=== PATIENT | female | born 1995 | race Caucasian/White ===

== ENCOUNTER 2021-01-26 15:44 | Emergency (ER) | payer OTHER, SELFPAY ==
[2021-01-26 16:11] VITALS: BP 118/74; PULSE 106; RESP 17; TEMP 37.5; O2SAT 100
--- NOTE | 2021-01-26 16:18 | ED.FEMALEGU ---
HPI - Female Genitourinary General Chief complaint: Urogenital-Female Stated complaint: UTI History of Present Illness HPI Narrative: This is a 25-year-old female comes in complaining with burning urination and frequency states that is been going on for approximately 1 week. Patient states she tried taking cranberry pills to see if it would help resolve the symptoms which did not now it is truly burning and she is having frequency as well as urgency. Related Data Home Medications Medication Instructions Recorded Confirmed medroxyprogesterone mg IM 01/26/21 Allergies Allergy/AdvReac Type Severity Reaction Status Date / Time Penicillins AdvReac Other Verified 01/26/21 16:24 Review of Systems Review of Systems: Narrative: CONSTITUTIONAL: Denies fever, chills, or sweats. EYES: Denies visual changes, redness, or discharge. ENT: Denies rhinorrhea, congestion, sore throat, or otalgia. CARDIOVASCULAR:Denies chest pain, palpitations, or edema. RESPIRATORY: Denies cough or dyspnea. GASTROINTESTINAL: Denies abdominal pain, nausea, vomiting, or diarrhea. GENITOURINARY: Reports dysuria or hematuria. SKIN:[Denies rash or itching. MUSCULOSKELETAL:Denies back pain, joint pain, or myalgia. NEUROLOGIC: Denies headache, numbness, or weakness. PSYCHIATRIC:Denies anxiety or depression PMFSH Comments At time as signature, I have reviewed and agree with nursing past medical, social, surgical and family history. Please see nursing chart for further information. There is no relevant family history pertinent to the presenting complaint. Exam Narrative: Exam Narrative: GENERAL:Well-appearing, well-nourished, and in no acute distress. HEAD:Normocephalic, atraumatic. EYES: PERRLA and EOMI. ENT: Nares clear, no rhinorrhea or epistaxis. Mucous membranes moist. NECK: Supple. CHEST: Clear to auscultation. No respiratory distress. HEART: Regular rate and rhythm. No murmur heard. Normal peripheral pulses. ABDOMEN: Soft, nontender, nondistended, normal active bowel sounds. Frequency, urgency, dysuria EXTREMITIES: Normal range of motion. No edema. SKIN: Warm, dry, no rash. NEURO: No focal deficits. Alert and oriented x3. Discussed with patient about her allergies and what affects her side effects she has to them patient informed me both of her parents are allergic to penicillin I explained and educated patient that parents allergies does not indicate her allergies. Course WINDOWS ADMIN/PA Physician Supervision +2+ blood 1 leuks will send for culture Vital Signs Vital signs: Vital Signs Temperature 99.5 F 01/26/21 16:11 Pulse Rate 106 H 01/26/21 16:11 Respiratory Rate 17 01/26/21 16:11 Blood Pressure 118/74 01/26/21 16:11 Pulse Oximetry 100 01/26/21 16:11 Temperature 99.5 F 01/26/21 16:11 Pulse Rate 106 H 01/26/21 16:11 Respiratory Rate 17 01/26/21 16:11 Blood Pressure 118/74 01/26/21 16:11 Pulse Oximetry 100 01/26/21 16:11 MDM - Female Genitourinary Differential Diagnosis Differential diagnosis: Likely urinary tract infection and cystitis Discharge Plan Discharge Clinical Impression: Urinary tract infection Qualifiers: Urinary tract infection type: acute cystitis Hematuria presence: with hematuria Qualified Code(s): N30.01 - Acute cystitis with hematuria Patient Disposition: Home, Self-Care Condition: Stable Instructions: Antibiotic Form, Urinary Tract Infection in Women (DC) Additional Instructions: We will send a urine culture off to the lab; if the culture identifies an organism that the prescribed antibiotic will not treat, you will receive a phone call from an urgent care staff member and an appropriate antibiotic will be prescribed. Increase fluids especially water Avoid caffeine and carbonated beverages Antibiotic as directed Medicine as directed--cautioned it will cause your urine to be bright orange Tylenol/ibuprofen prn for pain or fever Follow-up with your primary care provider for u
== END 2021-01-26 16:24 | disposition home or self-care (01) ==
PROVIDERS: Emergency Provider Nurse Practitioner Family
DX: N30.01 Acute cystitis with hematuria (principal)
CPT/HCPCS: 81003; 87077; 87086; 87088; 87186; 99213; G0463

== ENCOUNTER 2021-04-20 16:37 | Emergency (ER) | payer OTHER, SELFPAY ==
[2021-04-20 16:52] VITALS: BP 114/72; PULSE 83; RESP 16; TEMP 37.4; O2SAT 100
--- NOTE | 2021-04-20 17:53 | ED.FEMALEGU ---
HPI - Female Genitourinary General Chief complaint: Urogenital-Female Stated complaint: UTI Time Seen by Provider: 04/20/21 17:25 Source: patient, RN notes reviewed and old records reviewed Mode of arrival: ambulatory Limitations: no limitations History of Present Illness HPI Narrative: 26-year-old female presents to [facility] with complaints of burning with urination since Monday. Patient denies any nausea or vomiting or any known fevers, chills or sweats.Patient reports no suprapubic tenderness or any flank or low back discomfort. She states that she has not taken any OTC Azo for her symptoms. She denies any vaginal discharge or itching or any concerns for possible STD exposure. Patient does states history of previous urinary tract infections. MD elicited complaint: dysuria Related Data Home Medications Medication Instructions Recorded Confirmed medroxyprogesterone mg IM 01/26/21 Allergies Allergy/AdvReac Type Severity Reaction Status Date / Time Penicillins AdvReac Other Verified 01/26/21 16:24 Review of Systems Review of Systems: CONSTITUTIONAL: Denies fever, chills, or sweats. EYES: Denies visual changes, redness, or discharge. ENT: Denies rhinorrhea, congestion, sore throat, or otalgia. CARDIOVASCULAR: Denies chest pain, palpitations, or edema. RESPIRATORY: Denies cough or dyspnea. GASTROINTESTINAL: Denies abdominal pain, nausea, vomiting, or diarrhea. GENITOURINARY: Positive dysuria or hematuria. SKIN: Denies rash or itching. MUSCULOSKELETAL: Denies back pain, joint pain, or myalgia. NEUROLOGIC: Denies headache, numbness, or weakness. PSYCHIATRIC: Denies anxiety or depression. All systems reviewed & are unremarkable except as noted in HPI and below PMFSH Past Medical History Medical History (Updated 04/24/21 @ 08:26 by Nancie Gallardo NP) UTI (urinary tract infection) Surgical History Surgical History (Updated 04/24/21 @ 08:26 by Nancie Gallardo NP) No history of previous surgery Family History Family History (Updated 04/24/21 @ 08:28 by Nancie Gallardo NP) Mother Cerebrovascular accident Uterine cancer Father Hypertension Heart disease Melanoma Alzheimers disease Social History Social History (Updated 04/24/21 @ 08:29 by Nancie Gallardo NP) Smoking status: Never smoker Alcohol intake: current Alcohol use details: rare social Substance use: never Living arrangements: with family Gender identity (if verbalized by the patient): Female Comments At time of signature, agree with nursing past medical, surgical, social and family history. There is no relevant family history pertinent to the presenting complaint Exam Narrative: GENERAL: Well-appearing, well-nourished, and in no acute distress. HEAD: Normocephalic, atraumatic. EYES: PERRLA and EOMI. ENT: Nares clear, no rhinorrhea or epistaxis. Mucous membranes moist.TM's normal with good light reflex, throat pink with no exudates or lesions, no tonsil enlargement NECK: Supple.no lymphadenopathy CHEST: Clear to auscultation. No respiratory distress.SAO2 100% on room air HEART: Regular rate and rhythm. No murmur heard. Normal peripheral pulses. ABDOMEN: Soft, nontender, nondistended, normal active bowel sounds.No CVA tenderness on exam EXTREMITIES: Normal range of motion. No edema. SKIN: Warm, dry, no rash. NEURO: No focal deficits. Alert and oriented x3. Course Vital Signs Vital signs: Vital Signs Temperature 37.4 C 04/20/21 16:52 Pulse Rate 83 04/20/21 16:52 Respiratory Rate 16 04/20/21 16:52 Blood Pressure 114/72 04/20/21 16:52 Pulse Oximetry 100 04/20/21 16:52 Temperature 37.4 C 04/20/21 16:52 Pulse Rate 83 04/20/21 16:52 Respiratory Rate 16 04/20/21 16:52 Blood Pressure 114/72 04/20/21 16:52 Pulse Oximetry 100 04/20/21 16:52 MDM - Female Genitourinary Differential Diagnosis Differential diagnosis: Likely urinary tract infection, cervicitis, vaginitis, cy
== END 2021-04-20 18:12 | disposition home or self-care (01) ==
PROVIDERS: Emergency Provider Registered Nurse
DX: N39.0 Urinary tract infection, site not specified (principal)
CPT/HCPCS: 81003; 87077; 87086; 87088; 87186; 99213; G0463

== ENCOUNTER 2023-10-24 13:42 | Emergency (ER) | payer SELFPAY ==
[2023-10-24 14:07] VITALS: BP 137/74; PULSE 78; RESP 16; TEMP 36.4; O2SAT 100
--- NOTE | 2023-10-24 16:47 | ED.FEMALEGU ---
HPI - Female Genitourinary General Chief complaint: Vaginal Bleeding Stated complaint: vaginal bleeding Time Seen by Provider: 10/24/23 16:50 Source: patient Mode of arrival: ambulatory Limitations: no limitations History of Present Illness HPI Narrative: Tashi is a 28-year-old female patient presenting to the ER today for complaints of vaginal bleeding-passing 3 dime size clots. Is having normal menstrual cramps. Menses is not heavy. But patient reports that is abnormal for her to pass clots during her menstruation. She denies any abdominal pain, unusual cramping, fever, chills, body aches, or any bleeding disorder. She is not currently on any type of control. States she does not have a OBGYN provider as she has off and on insurance. Related Data Home Medications Medication Instructions Recorded Confirmed medroxyprogesterone 150 mg/mL mg IM 01/26/21 intramuscular syringe Allergies Allergy/AdvReac Type Severity Reaction Status Date / Time Penicillins AdvReac Other Verified 01/26/21 16:24 Review of Systems Review of Systems: Pertinent positives per HPI. Patient denies any fever, chills, rash, headache, visual changes, dizziness, cough, runny nose, sore throat, shortness of breath, chest pain, palpitations, nausea, vomiting, diarrhea, constipation, abdominal pain, or any urinary issues. [facility] Past Medical History Medical History (Updated 10/24/23 @ 16:58 by Dell Membreno APRN) UTI (urinary tract infection) Surgical History Surgical History No history of previous surgery Family History Family History Mother Cerebrovascular accident Uterine cancer Father Hypertension Heart disease Melanoma Alzheimers disease Social History Social History Smoking status: Never smoker Alcohol intake: current Alcohol use details: rare social Substance use: never Living arrangements: with family Gender identity (if verbalized by the patient): Female Comments At the time of my signature, I reviewed and agree with the nursing past medical, surgical, social, and family history. There is no relevant family history pertinent to the patient complaint. Exam Narrative: General: Well-developed, well nourished, in no apparent distress. Head: Normocephalic, atraumatic. Cardio: Regular rate and rhythm, s1 and s2 normal, no murmur appreciated. Resp: Clear to auscultation bilaterally, no rhonchi, rales, wheezing or rubs. Abdomen: Soft, pliable, bowel sounds present in all quadrants, non-tender to palpation, no organomegly, no CVAT tenderness. : Deferred Course Course Emergency Course: Portions of this record may have been created with voice recognition software. Vital Signs Vital signs: Vital Signs Temperature 36.4 C L 10/24/23 14:07 Pulse Rate 78 10/24/23 14:07 Respiratory Rate 16 10/24/23 14:07 Blood Pressure 137/74 10/24/23 14:07 Pulse Oximetry 100 10/24/23 14:07 Oxygen Delivery Room Air 10/24/23 14:07 Temperature 36.4 C L 10/24/23 14:07 Pulse Rate 78 10/24/23 14:07 Respiratory Rate 16 10/24/23 14:07 Blood Pressure 137/74 10/24/23 14:07 Pulse Oximetry 100 10/24/23 14:07 Oxygen Delivery Room Air 10/24/23 14:07 Vital signs reviewed MDM - Female Genitourinary MDM Narrative Medical decision making narrative: At the time of visit patient is resting comfortably on the exam table. Patient appears to be nontoxic. Labs: Bedside test was negative Plan: I suspect patient has normal menstruation with blood clots. Bedside test was negative. OBGYN referral was given. supportive measures were discussed with the patient and they voiced understanding discharge instructions and agrees to treatment plan. Return precautions reviewed
[2023-10-24 16:52] VITALS: BP 126/74; PULSE 76; RESP 16; TEMP 36.7; O2SAT 100
== END 2023-10-24 17:20 | disposition home or self-care (01) ==
LOC: ANHED 17:18
PROVIDERS: Emergency Provider Nurse Practitioner Family
DX: N92.0 Excessive and frequent menstruation with regular cycle (principal); Z87.440 Personal history of urinary (tract) infections
CPT/HCPCS: 99281

== ENCOUNTER 2025-06-18 16:21 | Emergency (ER) | payer BC, SELFPAY ==
--- NOTE | ~2025-06-18 | US_ITS ---
EXAMINATION: US OB <=14 wk fetus w TV DATE: 06/18/2025 17:42 INDICATION: Possible demise during first trimester TECHNIQUE: Real-time pelvic ultrasound utilizing both a transvaginal and transabdominal probe was performed. The interpreting radiologist was not present for the study. COMPARISON: None. FINDINGS: The uterus measures 6.4 x 5.5 x 3.7 cm. There is an intrauterine gestational sac. A yolk sac and pole are identified. The crown rump length measures 9 mm, which correlates with an estimated gestational age of 6 weeks and 6 days. There is no evident heart motion on cine grayscale imaging, color Doppler or M-mode Doppler which is consistent with demise. The right ovary measures 2.6 x 2.0 x 1.7 cm. The left ovary measures 2.3 x 1.4 x 1.3 cm. Basilar flow identified in both ovaries on color Doppler. There is no free fluid in the pelvis. IMPRESSION: 1. Single intrauterine gestational sac with a 9 mm pole which would correspond to a gestational age by ultrasound of 6 weeks and 6 days +/-4 days but without discernible heart motion which be consistent with demise. Reviewed, dictated and finalized at location A. IMPRESSION: 1. Single intrauterine gestational sac with a 9 mm pole which would corre spond to a gestational age by ultrasound of 6 weeks and 6 days +/-4 days but wi thout discernible heart motion which be consistent with demise.
[2025-06-18 16:22] VITALS: BP 132/84; PULSE 97; RESP 16; TEMP 36.8; O2SAT 100
--- NOTE | 2025-06-18 16:24 | ED.PREGNANCY ---
HPI - General Chief complaint: Recheck/Abnormal Lab/Rx <Dell Membreno APRN - Last Filed: 06/18/25 16:32> Stated complaint: unable to detect heartbeat on US at [facility] <Dell Membreno APRN - Last Filed: 06/18/25 16:32> Time Seen by Provider: 06/18/25 16:24 <Dell Membreno APRN - Last Filed: 06/18/25 16:32> Focused HPI: Tashi is a 30-year-old female patient presenting to the ER today for no heart rate-patient is 8 weeks . Had US at [facility] and they could not find a heart beat. Last menstrual period was April 19, 2020. Patient is . Only reports very scant amount of vaginal bleeding but did not think anything of it. No vaginal bleeding, abdomen pain, or pelvic pain currently. Reports some nausea. GENERAL: Well-appearing, morbidly obese, and in no acute distress. HEAD: Normocephalic, atraumatic. CHEST: Clear to auscultation. No respiratory distress. HEART: Regular rate and rhythm. NEURO: Alert and oriented x3. Patient screened in triage and initial orders placed. Additional care and disposition to be based upon diagnostic testing and treatment. <Dell Membreno APRN - Last Filed: 06/18/25 16:32> Source: patient and family <Dell Membreno APRN - Last Filed: 06/18/25 16:32> Mode of arrival: ambulatory <Dell Membreno APRN - Last Filed: 06/18/25 16:32> Limitations: no limitations <Dell Membreno APRN - Last Filed: 06/18/25 16:32> Related Data Home medications: Home Medications ?Medication ?Instructions ?Recorded ?Confirmed ?Last Taken ?Type medroxyprogesterone 150 mg/mL mg IM 01/26/21 Unknown History intramuscular syringe <Dell Membreno APRN - Last Filed: 06/18/25 16:32> Allergies/Adverse reactions: Allergies Allergy/AdvReac Type Severity Reaction Status Date / Time Penicillins AdvReac Other Verified 06/18/25 16:25 <Dell Membreno APRN - Last Filed: 06/18/25 16:32> Review of Systems Review of Systems: All systems reviewed & are unremarkable except as noted in HPI and below <Jeri Burger APRN - Last Filed: 06/18/25 19:46> [facility] Past Medical History Medical History: Medical History UTI (urinary tract infection) <Dell Membreno APRN - Last Filed: 06/18/25 16:32> Surgical History Surgical History: Surgical History No history of previous surgery <Dell Membreno APRN - Last Filed: 06/18/25 16:32> Family History Family History: Family History Mother Cerebrovascular accident Uterine cancer Father Hypertension Heart disease Melanoma Alzheimers disease <Dell Membreno APRN - Last Filed: 06/18/25 16:32> Social History Social History: Social History Smoking status: Never smoker Alcohol intake: current Alcohol use details: rare social Substance use: never Living arrangements: with family Gender identity (if verbalized by the patient): Female <Dell Membreno APRN - Last Filed: 06/18/25 16:32> Exam Narrative: GENERAL: Well appearing, obese, non-toxic, in no acute distress. HEAD: Normocephalic, atraumatic. NECK: Supple. No adenopathy, no masses. RESPIRATORY: Airway patent, respirations nonlabored. Clear to auscultation bilaterally, no rales, rhonchi, wheezing. CARDIOVASCULAR: Regular rate and rhythm without murmurs, rubs, or gallops. Peripheral pulses 2+ and equal bilaterally. ABDOMINAL: Soft, nontender, nondistended, no hepatosplenomegaly. Normoactive BS. MUSCULOSKELETAL: Moves all extremities. Strength/ROM intact without gross deformities. SKIN: Warm, dry, normal color. No rashes. NEURO: A&O X3. Speech clear. Cranial nerves II-XII intact. No ataxic movements. PSYCHIATRIC: Appropriate mood and affect. Normal interaction. <Jeri Burger, FRAMING MILL OPERATOR HELPER - Last Filed: 06/18/25 19:46> Course Vital Signs Vital signs: Vital Signs Temperature 36.8 C 06/18/25 16:22 Pulse Rate 97 06/18/25 16:22 Respiratory Rate 16 06/18/25 16:22 Blood Pressure 132/84 06/18/25 16:22 Pulse Oximetry 100 06/18/25 16:22 Temperature 37.0 C 06/18/25 19:08 Pulse Rate 88 06/18/25 19:09 Respiratory Rate 17 06/18/25 19:09 Blood Pressure 119/80 06/18/25 19:09 Pulse Oximetry 99 06/18/25 19:09 Oxygen Delivery Room Air 06/18/25 19:08 <Dell Membreno, FRAMING MILL OPERATOR HELPER - Last Filed: 06/18/25 16:32> Vital Signs Temperature 36.8 C 06/18/25 16:22 Pulse Rate 97 06/18/25 16:22 Respiratory Rate 16 06/18/25 16:22 Blood Pressure 132/84 06/18/25 16:22 Pulse Oximetry 100 06/18/25 16:22 Temperature 37.0 C 06/18/25 19:08 Pulse Rate 88 06/18/25 19:09 Respiratory Rate 17 06/18/25 19:09 Blood Pressure 119/80 06/18/25 19:09 Pulse Oximetry 99 06/18/25 19:09 Oxygen Delivery Room Air 06/18/25 19:08 <Jeri Burger, FRAMING MILL OPERATOR HELPER - Last Filed: 06/18/25 19:46> MDM - OB/Uterine Contractions MDM Narrative Medical decision making narrative: Tashi is a 30-year-old female patient presenting to the ER today for no heart rate-patient is 8 weeks . Had US at [facility] and they could not find a heart beat. Last menstrual period was April 19, 2020. Patient is . Only reports very scant amount of vaginal bleeding but did not think anything of it. No vaginal bleeding, abdomen pain, or pelvic pain currently. Reports some nausea. Labs Ordered: CBC, CMP, hCG, UA Imaging Ordered: ultrasound Ob Medications Ordered: none necessary Results: Pt's US indicates Single intrauterine gestational sac with a 9 mm pole which would correspond to a gestational age by ultrasound of 6 weeks and 6 days +/-4 days but without discernible heart motion which be consistent with demise. Diagnosis: threatened miscarriage Consults: OBGYN (outpatient) Patient Education/Shared MDM: Results of lab work and imaging shared with patient. She denies the need for nausea or pain medicine. Patient strongly advised to maintain hydration status upon discharge and follow-up with OBGYN as soon as possible. She will not be discharged home with any new prescriptions. Strict return precautions provided. Patient verbalized understanding and is in agreement with plan. Vital signs stable at time of discharge. All questions answered. <Jeri Burger APRN - Last Filed: 06/18/25 19:46> Differential Diagnosis Differential diagnosis: Likely other ( threatened miscarriage, vaginal bleeding, urinary tract infection, intrauterine ) <Jeri Burger APRN - Last Filed: 06/18/25 19:46> Lab Data Attestation: I reviewed the patient's lab results. <Jeri Burger FRAMING MILL OPERATOR HELPER - Last Filed: 06/18/25 19:46> Result diagrams: 06/18/25 16:38 06/18/25 16:38 <Dell Membreno FRAMING MILL OPERATOR HELPER - Last Filed: 06/18/25 16:32> Labs: Lab Results 06/18/25 06/18/25 Range/Units 16:38 16:43 WBC 10.4 H (4.5-10.0) K/mm3 RBC 5.12 (4.2-5.4) M/mm3 Hgb 15.3 H (12.0-15.0) g/dL Hct 45.5 (37.0-47.0) % MCV 88.9 (80-100) fl MCH 29.9 (26-34) pg MCHC 33.6 (32-36) g/dl RDW 12.6 (11.5-14.5) % Plt Count 315 (150-375) k/mm3 MPV 10.8 H (7.4-10.4) fl Immature Gran % (Auto) 0.6 H (0-0.5) % Neut % (Auto) 63.3 (45.5-73.1) % Lymph % (Auto) 29.6 (18.3-44.2) % [place] % (Auto) 5.6 (2.6-8.5) % Eos % (Auto) 0.5 (0-4.4) % Baso % (Auto) 0.4 (0.2-1.2) % Lymph # (Auto) 3.09 (0.9-3.2) K/mm3 [place] # (Auto) 0.6 (0.1-0.6) K/mm3 Eos # (Auto) 0.1 (0-0.3) K/mm3 Baso # (Auto) 0.0 (0.0-0.1) K/mm3 Abs Immat Gran (auto) 0.06 H (0.00-0.031) K/mm3 Absolute Neuts (auto) 6.6 (1.3-6.7) K/mm3 Absolute Nucleated RBC 0.000 (0.0-0.012) K/mm3 Nucleated RBC % 0.0 (0.0-0.2) % Sodium 137 (137-145) mmol/L Potassium 3.7 (3.4-5.0) mmol/L Chloride 103 (98-107) mmol/L Carbon Dioxide 21 L (22-30) mmol/L Anion Gap 13 H (4-12) mmol/L BUN 13 (7-17) mg/dL Creatinine 0.67 L (0.7-1.0) mg/dL Estim Creat Clear Calc 96 ml/min Estimated GFR > 60 (59 - ) Glucose 100 (65-110) mg/dL Calcium 9.6 (8.4-10.2) mg/dL Total Bilirubin 0.4 (0.2-1.3) mg/dL AST 24 (14-36) U/L ALT 26 (6-35) U/L Alkaline Phosphatase 70 (38-126) U/L Total Protein 8.6 H (6.3-8.2) g/dL Albumin 4.8 (3.5-5.1) g/dL Beta HCG, Quant 83499.00 mIU/ML Urine Color Yellow (Yellow) Urine Appearance Clear (Clear) Urine pH 6.5 (5.0-9.0) Ur Specific [place] 1.003 (1.001-1.035) Urine Protein Negative (Negative) mg/dL Urine Glucose (UA) Negative (Negative) mg/dL Urine Ketones Negative (Negative) mg/dL Ur Blood (Man) Negative (Negative) Urine Nitrate Negative (Negative) Urine Bilirubin Negative (Negative) Urine Urobilinogen 0.2 (<2.0) mg/dL Leukocyte Esterase Rfl Negative (Negative) JEAN/UL Blood Type B Positive Antibody Screen Negative Screen Not Reportable Baby's Blood Type Not Reportable Baby's ROSLYN Not Reportable Doses of RhIg Required 0 <Dell Membreno, FRAMING MILL OPERATOR HELPER - Last Filed: 06/18/25 16:32> Lab Results 06/18/25 06/18/25 Range/Units 16:38 16:43 WBC 10.4 H (4.5-10.0) K/mm3 RBC 5.12 (4.2-5.4) M/mm3 Hgb 15.3 H (12.0-15.0) g/dL Hct 45.5 (37.0-47.0) % MCV 88.9 (80-100) fl MCH 29.9 (26-34) pg MCHC 33.6 (32-36) g/dl RDW 12.6 (11.5-14.5) % Plt Count 315 (150-375) k/mm3 MPV 10.8 H (7.4-10.4) fl Immature Gran % (Auto) 0.6 H (0-0.5) % Neut % (Auto) 63.3 (45.5-73.1) % Lymph % (Auto) 29.6 (18.3-44.2) % [place] % (Auto) 5.6 (2.6-8.5) % Eos % (Auto) 0.5 (0-4.4) % Baso % (Auto) 0.4 (0.2-1.2) % Lymph # (Auto) 3.09 (0.9-3.2) K/mm3 [place] # (Auto) 0.6 (0.1-0.6) K/mm3 Eos # (Auto) 0.1 (0-0.3) K/mm3 Baso # (Auto) 0.0 (0.0-0.1) K/mm3 Abs Immat Gran (auto) 0.06 H (0.00-0.031) K/mm3 Absolute Neuts (auto) 6.6 (1.3-6.7) K/mm3 Absolute Nucleated RBC 0.000 (0.0-0.012) K/mm3 Nucleated RBC % 0.0 (0.0-0.2) % Sodium 137 (137-145) mmol/L Potassium 3.7 (3.4-5.0) mmol/L Chloride 103 (98-107) mmol/L Carbon Dioxide 21 L (22-30) mmol/L Anion Gap 13 H (4-12) mmol/L BUN 13 (7-17) mg/dL Creatinine 0.67 L (0.7-1.0) mg/dL Estim Creat Clear Calc 96 ml/min Estimated GFR > 60 (59 - ) Glucose 100 (65-110) mg/dL Calcium 9.6 (8.4-10.2) mg/dL Total Bilirubin 0.4 (0.2-1.3) mg/dL AST 24 (14-36) U/L ALT 26 (6-35) U/L Alkaline Phosphatase 70 (38-126) U/L Total Protein 8.6 H (6.3-8.2) g/dL Albumin 4.8 (3.5-5.1) g/dL Beta HCG, Quant 14862.00 mIU/ML Urine Color Yellow (Yellow) Urine Appearance Clear (Clear) Urine pH 6.5 (5.0-9.0) Ur Specific [place] 1.003 (1.001-1.035) Urine Protein Negative (Negative) mg/dL Urine Glucose (UA) Negative (Negative) mg/dL Urine Ketones Negative (Negative) mg/dL Ur Blood (Man) Negative (Negative) Urine Nitrate Negative (Negative) Urine Bilirubin Negative (Negative) Urine Urobilinogen 0.2 (<2.0) mg/dL Leukocyte Esterase Rfl Negative (Negative) JEAN/UL Blood Type B Positive Antibody Screen Negative Screen Not Reportable Baby's Blood Type Not Reportable Baby's ROSLYN Not Reportable Doses of RhIg Required 0 <Jeri Burger APRN - Last Filed: 06/18/25 19:46> Imaging Data Attestation: I personally reviewed and interpreted this imaging study as follows: <Jeri Burger APRN - Last Filed: 06/18/25 19:46> Radiologist's impression: Impressions Obstetrics Ultrasound 06/18/25 17:57 IMPRESSION: 1. Single intrauterine gestational sac with a 9 mm pole which would correspond to a gestational age by ultrasound of 6 weeks and 6 days +/-4 days but without discernible heart motion which be consistent with demise. <Jeri Burger, FRAMING MILL OPERATOR HELPER - Last Filed: 06/18/25 19:46> Discharge Plan Discharge Clinical Impression: Miscarriage, threatened, early <Dell Membreno APRN - Last Filed: 06/18/25 16:32> Patient Disposition: Home <Dell Membreno APRN - Last Filed: 06/18/25 16:32> Condition: Stable <Dell Membreno APRN - Last Filed: 06/18/25 16:32> Instructions: Antibiotic Form, Threatened Miscarriage (ED) <Dell Membreno APRN - Last Filed: 06/18/25 16:32> Additional Instructions: Please return to the ER with any worsening symptoms. Follow-up with OBGYN as soon as possible. You may take Tylenol as needed for pain control. <Dell Membreno APRN - Last Filed: 06/18/25 16:32> Patient Language: Serbian <Dell Membreno APRN - Last Filed: 06/18/25 16:32> Prescriptions: No Action medroxyprogesterone 150 mg/mL syringe IM nitrofurantoin monohyd/m-cryst [Macrobid] 100 mg capsule 100 mg PO Q12H 7 Days Qty: 14 0RF Rx Instructions: must administer with a meal/food phenazopyridine [Pyridium] 200 mg tablet 200 mg PO TID PRN (Reason: pain) Qty: 6 0RF <Dell Membreno APRN - Last Filed: 06/18/25 16:32> Follow-up/Referrals: Kilo Ma MD [Physician, STEREO EQUIPMENT REPAIRER] Antoni Moreno MD [Physician, STEREO EQUIPMENT REPAIRER] PHYSICIAN,SECURITY SYSTEMS INTEGRATOR [Primary Care Provider, Internal Medicine] Kurt Steward MD [Physician, STEREO EQUIPMENT REPAIRER] <Dell Membreno APRN - Last Filed: 06/18/25 16:32> Stand Alone Forms: Work/School Release IP <Dell Membreno APRN - Last Filed: 06/18/25 16:32> Time of Disposition: 19:45 <Dell Membreno APRN - Last Filed: 06/18/25 16:32> 19:45 <Jeri Burger APRN - Last Filed: 06/18/25 19:46>
[2025-06-18 16:43] LABS: Hematocrit 45.5 % (37.0-47.0); Hemoglobin 15.3 g/dL (12.0-15.0); Immature Granulocyte Percent A 0.6 % (0-0.5); Lymphocytes Absolute Auto 3.09 K/mm3 (0.9-3.2); Mean Corpuscular HGB Conc 33.6 g/dl (32-36); Mean Corpuscular Hemoglobin 29.9 pg (26-34); Mean Corpuscular Volume 88.9 fl (80-100); Nucleated Red Blood Cells Absolute Auto 0.000 K/mm3 (0.0-0.012); Nucleated Red Blood Cells Perc 0.0 % (0.0-0.2); Platelet Count Result 315 k/mm3 (150-375); Red Blood Count 5.12 M/mm3 (4.2-5.4); White Blood Count 10.4 K/mm3 (4.5-10.0)
[2025-06-18 16:51] LABS: Add Urine Microscopic? NO; Appearance Urine Clear (Clear); Glucose Urine UA Negative (Negative); Leukocyte Esterase Ur Negative LEU/UL (Negative); Nitrate Urine Negative (Negative); Specific Grav Ur 1.003 (1.001-1.035)
[2025-06-18 17:03] LABS: Alanine Aminotransferase 26 U/L (6-35); Albumin Level 4.8 g/dL (3.5-5.1); Alkaline Phosphatase 70 U/L (38-126); Anion Gap 13 mmol/L (4-12); Aspartate Amino Transferase 24 U/L (14-36); Bilirubin,Total 0.4 mg/dL (0.2-1.3); Blood Urea Nitrogen 13 mg/dL (7-17); Calcium 9.6 mg/dL (8.4-10.2); Carbon Dioxide 21 mmol/L (22-30); Chloride 103 mmol/L (98-107); Estimated CRCL calculation 96 ml/min; Estimated Glomerular Filt Rate > 60; Glucose 100 mg/dL (65-110); Potassium 3.7 mmol/L (3.4-5.0); Sodium 137 mmol/L (137-145); Total Protein 8.6 g/dL (6.3-8.2)
[2025-06-18 17:26] LABS: Beta HCG Quantitative 13099.00 mIU/ML
--- OUTSIDE RECORDS SUMMARY | 2025-06-18 17:55 | XMS_ITS | Clinical Summary ---
Author Organization [facility] [employer] Address [address] [place] [address] Care Team Providers Care Recording Studio Intern Name Role Phone Thomas Chacko MD Primary Care Provider [phone] [facility] [employer],non-owned Affiliates and Associated Physician Practices is amultiple site organization consisting of ambulatory clinics and hospital sitesin [place], [place], [place] and [place]. This disclosure is being madepursuant to the Care Everywhere program and may not contain all information available regarding this patient. Last updated 18.[facility] [employer] Allergies No known active allergies Medications * Be aware that medications may not be up to date on this document. Alwaysverify current medications with the patient. 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 03/01/2017 Family History Medical History Relation Name Comments Arthritis - Osteo Father CAD (Coronary Artery Disease) Father Cancer - Other Father Schwanoma Cancer - Skin, Melanoma Father Dementia Father Hearing Loss - Unspecified Father Hyperlipidemia Father Hypertension Father Anxiety Disorder Mother Cancer - Ovarian Mother Depression Mother Anxiety Disorder Sister 1 November Cancer - Ovarian Sister 1 Moira Alcohol abuse Sister 2 Yesica Anxiety Disorder Sister 2 Yesica Cancer - Ovarian Sister 2 Yseica Depression Sister 2 Yesica Thyroid Disease Sister 2 Yesica Cancer - Ovarian Sister 3 Steff Alcohol abuse Sister 5 Candy Anxiety Disorder Sister 5 Candy Cancer - Ovarian Sister 5 Candy Depression Sister 5 Candy Seizures Sister 5 Candy Relation Name Status Comments Father Mother Sister 1 Moira Alive Sister 2 Yesica Alive Sister 3 Steff Alive Sister 4 Crystal Alive Sister 5 Candy Alive Sister 6 Richard Alive Social History Tobacco Use Types Packs/Day Years Used Date Smoking Tobacco: Never Smokeless Tobacco: Never Alcohol Use Standard Drinks/Week Comments Not Currently 0 (1 standard drink = 0.6 oz pur e alcohol) Comments Unknown Sex and Gender Information Value Date Recorded Sex Assigned at Not on file Legal Sex Female 10:22 AM CDT Gender Identity Not on file Sexual Orientation Not on file Last Filed Vital Signs Vital Sign Reading Time Taken Comments Blood Pressure 137/84 01/27/2020 2:12 PM CDT Pulse 93 01/27/2020 2:12 PM CDT Temperature - - Respiratory Rate - - Oxygen Saturation - - Inhaled Oxygen Concentration - - Weight 80.3 kg (177 lb) 01/27/2020 2:12 PM CDT Height 154.9 cm (5' 1) 01/27/2020 2:12 PM CDT Body Mass Index 33.44 01/27/2020 2:12 PM CDT Plan of Treatment Health Maintenance Due Date Last Done Comments HIV SCREENING 2009 HEPATITIS C SCREENING 04/12/2012 DTAP/TDAP/TD VACCINES (1 - Tdap) 2013 HEPATITIS B VACCINE (1 of 3 - 19+ 3-dose series) 2013 HPV VACCINE (1 - 3-dose SCDM series) 2021 DEPRESSION SCREENING 08/21/2024 COVID-19 VACCINE ( - 2023-2 5 season) 2025 INFLUENZA VACCINE (#1) 2025 ZOSTER VACCINE (1 of 2) 2044 HIB VACCINE Aged Out No longer eligi ble based on patient's age to complete this topic MENINGOCOCCAL (Group B) VACC INE SHARED DECISION-MAKING Aged Out No longer eligibl e based on patient's age to complete this topic MENINGOCOCCAL GROUPS A/C/Y/W VACCINE Aged Out No longer eligible b ased on patient's age to complete this topic PNEUMOCOCCAL VACCINE Aged Out No long er eligible based on patient's age to complete this topic Insurance [address] [place] [address] [address] Care Teams Recording Studio Intern Relationship Specialty [place] [address] [place] [address] PCP - General 01/27/20
[2025-06-18 19:08] VITALS: BP 119/80; PULSE 92; RESP 17; TEMP 37; O2SAT 99
[2025-06-18 19:09] VITALS: BP 119/80; PULSE 88; RESP 17; O2SAT 99
--- OUTSIDE RECORDS SUMMARY | 2025-06-18 19:39 | XMS_ITS | Clinical Summary ---
Author Organization [facility] Address [facility] [place] [address] Care Team Providers Care Freight Associate Name Role Phone None, Provider MD Primary Care Provider Unavaila ble Allergies Active Allergy Reactions Criticality Noted Date Comments Penicillins Unknown 07/05/2022 Patient states family hx of penicillin allergy, has never been given penicillin Medications medroxyPROGESTER one injection Inject 1 mL into the muscle every 3 (three) months. 10/29/2019 Active albuterol sulfate HFA 108 (90 Base) MCG/ACT inhaler Inhale 2 puffs into the lungs every 6 (six) hours as needed for Wheezing. 8 g 07/17/2022 Active Active Problems No known active problems Family History Medical History Relation Comments Alzheimers Father COPD Father Cancer Father Dementia Father Anemia Mother Depression Mother Fibromyalgia Mother Relation Status Comments Father Mother Social History Tobacco Use Types Packs/Day Years Used Date Smoking Tobacco: Never Smokeless Tobacco: Never Alcohol Use Standard Drinks/Week Comments No 0 (1 standard drink = 0.6 oz pur e alcohol) AUDIT-C Answer Date Recorded Frequency of Alcohol Consumption Never 05/21/2019 Average Number of Drinks Not on file 019 Frequency of Binge Drinking Not on file 08/2018 PHQ-2 Answer Date Recorded PHQ-2 Score 0 12/10/2019 Education Answer Date Recorded What is the highest level of school you have completed or the highest degree you have received? 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 Legal Sex Female 4:58 PM CDT Gender Identity Female 09/20/2021 4:31 AM TUCK POINTER HELPER Sexual Orientation Straight 09/20/2021 4: 31 AM TUCK POINTER HELPER Occupation Industry Job Start Date Job End Date Not on file Not on file Not on file Not on file Last Filed Vital Signs Vital Sign Reading Time Taken Comments Blood Pressure 103/77 11/23/2022 9:30 PM CDT Pulse 98 11/23/2022 9:30 PM CDT Temperature 36.5 C (97.7 F) 11/23/2022 9:30 PM CDT Respiratory Rate 18 11/23/2022 9:30 PM CDT Oxygen Saturation 100% 11/23/2022 9:30 PM CDT Inhaled Oxygen Concentration - - Weight 75.8 kg (167 lb) 11/23/2022 9:30 PM CDT Height 154.9 cm (5' 1) 11/23/2022 9:30 PM CDT Body Mass Index 31.55 11/23/2022 9:30 PM CDT Plan of Treatment Health Maintenance Due Date Last Done Comments Cervical Cancer Screening Pa p Smear (Age 30 to 64) Every 3 Years 1994 Annual Physical 1997 Hepatitis C 2012 Hepatitis B Vaccines (1 of 3 - 19+ 3-dose series) 2013 HPV Vaccines (1 - 3-dose SCD M series) 2021 Cervical Cancer Screening Pa p with HPV Testing (Age 30 to 64) Every 5 Years 2024 Cervical Cancer Screening with HPV 2024 COVID-19 Vaccine (1 - 2024-2 6 season) 2025 Influenza Adult (#1) 2025 DTaP, Tdap and Td Vaccines ( 2 - Tdap) 12/13/2026 12/13/2016 Hepatitis A Vaccines Aged Out No long er eligible based on patient's age to complete this topic Meningococcal B Vaccine Aged Out No l onger eligible based on patient's age to complete this topic Meningococcal Vaccine Aged Out No pj mag eligible based on patient's age to complete this topic Pneumococcal Vaccine: Pediat rics (0 to 5 Years) and At-Risk Patients (6 to 49 Years) Aged Out No longer eligi ble based on patient's age to complete this topic RSV Immunizations Under 20 Months Aged Out No longer eligible based on patient's age to complete this topic Insurance [facility] MEDICAID Care Teams Freight Associate Relationship Specialty Start Date End Date None, Provider, PCP - General 05/21/19
[2025-06-18 19:56] VITALS: BP 132/87; PULSE 82; RESP 17; O2SAT 100
== END 2025-06-18 19:57 | disposition home or self-care (01) ==
PROVIDERS: Nurse Practitioner Family; Emergency Provider Registered Nurse
DX: O20.0 Threatened abortion (principal); O99.211 Obesity complicating pregnancy, first trimester; E66.01 Morbid (severe) obesity due to excess calories; Z3A.01 Less than 8 weeks gestation of pregnancy; Z87.440 Personal history of urinary (tract) infections
CPT/HCPCS: 36415; 76801; 76817; 80053; 81003; 84702; 85025; 85461; 86850; 86900; 86901; 99284